=== PATIENT | male | born 1980 | race Caucasian/White ===

== ENCOUNTER 2016-11-08 17:00 | Inpatient (IN) | payer BC, OTHER ==
[~2016-11-08] VITALS: Ht 182.9 cm; Wt 90.7 kg
[2016-11-08] MEDS ORDERED: LORAZEPAM 2 MG/1 ML VIAL IM PRN (18:45)
[2016-11-08] MEDS ORDERED: THIAMINE HCL 200 MG/2 ML VIAL IM ONE (18:45)
[2016-11-08] MEDS ORDERED: LOPERAMIDE HCL 2 MG CAPSULE PO PRN ×2 (18:45)
[2016-11-08] MEDS ORDERED: MIRALAX 17 GM POWD.PACK PO PRN (18:45)
[2016-11-08] MEDS ORDERED: MAGNESIUM HYDROXIDE 30 ML LIQUID UDC PO PRN (18:45)
[2016-11-08] MEDS ORDERED: DICYCLOMINE HCL 20 MG TABLET PO PRN (18:45)
[2016-11-08] MEDS ORDERED: HYDROXYZINE PAMOATE 25 MG CAPSULE PO PRN (18:45)
[2016-11-08] MEDS ORDERED: IBUPROFEN 400 MG TABLET PO PRN (18:45)
[2016-11-08] MEDS ORDERED: ACETAMINOPHEN 325 MG TABLET PO PRN (18:45)
[2016-11-08] MEDS ORDERED: LORAZEPAM 1 MG TABLET PO PRN ×2 (18:45)
[2016-11-08 18:53] LABS: *AMPHETAMINE, URINE NEGATIVE (NEGATIVE); *BARBITURATE, URINE NEGATIVE (NEGATIVE); *CANNABINOID, URINE NEGATIVE (NEGATIVE); *COCCAINE, URINE NEGATIVE (NEGATIVE); *OPIATE, URINE NEGATIVE (NEGATIVE); *PHENCYCLIDINE SCREEN,URINE NEGATIVE (NEGATIVE)
[2016-11-08 19:00] VITALS: BP 142/85
[2016-11-08] MEDS: ONDANSETRON ODT 4 MG TAB.RAPDIS SL PRN (19:13)
--- NOTE | 2016-11-08 19:15 | NUR ---
PRN Zofran administration Pt c/o nausea and is dry heaving. PRN Zofran ODT administered.
--- NOTE | 2016-11-08 19:30 | NUR ---
IV Insertion 22 gauge IV inserted in pt's left hand. IV was flushed and is patent. Site secured with dressing. Pt tolerated the insertion.
--- NOTE | 2016-11-08 20:15 | NUR ---
PRN Zofran reassessment PRN Zofran somewhat effective. Pt has had some relief but continues to have mild nausea.
[2016-11-08 20:41] LABS: BASOPHILS # (AUTO) 0.1 K/uL (0.0-0.2); BASOPHILS % (AUTO) 1.1 % (0.0-2.0); EOSINOPHILS % (AUTO) 0.4 % (0.0-7.0); HEMATOCRIT 45.1 % (40.0-50.0); HEMOGLOBIN 15.2 g/dL (14.0-18.0); LYMPHOCYTES # (AUTO) 1.2 K/uL (0.8-4.8); LYMPHOCYTES % (AUTO) 20.9 % (20.5-51.5); MEAN CORPUSCULAR HEMOGLOBIN 30.3 uug (27.0-31.0); MEAN CORPUSCULAR HGB CONC 34 g/dL (32.0-37.0); MEAN CORPUSCULAR VOLUME 89.7 fL (82.0-92.0); MONOCYTES # (AUTO) 0.6 K/uL (0.1-1.30); NEUTROPHILS % (AUTO) 67.6 % (38.5-71.5); PLATELET COUNT (AUTO) 260 K/uL (150-450); RED BLOOD CELL COUNT(AUTO) 5.02 MIL/uL (4.70-6.10); RED CELL DISTRIBUTION WIDTH 12.9 % (11.5-14.5); WHITE BLOOD COUNT (AUTO) 5.9 K/uL (4.0-11.2)
[2016-11-08 20:55] VITALS: BP 154/103
[2016-11-08] MEDS ORDERED: LORAZEPAM 1 MG TABLET PO ONE (21:00)
[2016-11-08] MEDS ORDERED: PANTOPRAZOLE SODIUM 40 MG VIAL IV ONE (21:00)
--- NOTE | 2016-11-08 21:00 | NUR ---
ADMISSION Pt is a 36 yo male who arrived on the [facility] at 1845 on 11/08/16. Body check performed by T and skin check performed by nurse. He was oriented to the unit and shown to his room. Pt is A&O x4 and ambulatory. He reports NKA, is full code status, and on a regular diet. He does not appear intoxicated and answers questions appropriately. Vital signs are B/P 142/85, HR 104 , RR 18, O2 sat 95%, T 98.3, pain 0/10. He is 6'0" and weighs 200lb. He has a h/o anxiety and denies any other PMH. Lung sounds clear, PERRLA, brisk capillary refill, bowel sounds present, technology education teacher equal and strong. He reports a poor appetite recently due to ETOH use. Last BM 11/06. He has a scrape on the right lower back and a bruise on the left buttock from a fall prior to admission. No s/s of infection. History of Use ETOH/Wine 2,560mL per day for the past 4 months. Last drank 1,280mL at 1200 on 11/08/16. He has drank ETOH for 20 years. Pt reports using cocaine 1x/month for 2 years. Last used 6 months ago. He used edible marijuana 1 week ago and reports that he rarely uses this. This is his first time in treatment. Pt's longest period of sobriety was for 11 days in 02/2016. Pt came to treatment because "I didn't decide, but I was willing". He does not have a primary care physician. CIWA on admission was 9. He has tremors, nausea, flushing, and anxiety. Dr Vasquez aware of pt's admission. Orders received. Fall and seizure precautions in place. Bed is down with call light in reach.
[2016-11-08 21:02] LABS: ALBUMIN 4.7 g/dL (3.4-5.0); BILIRUBIN,TOTAL 0.8 mg/dL (0.2-1.0); MAGNESIUM 2.3 mg/dL (1.8-2.4); POTASSIUM 4.1 mmol/L (3.5-5.1); TOTAL PROTEIN, SERUM 9.2 g/dL (6.4-8.2)
[2016-11-08] MEDS: ONDANSETRON 4 MG/2 ML VIAL IV PRN (21:03)
--- NOTE | 2016-11-08 21:05 | NUR ---
Onetime Ativan, Onetime Protonix, and PRN Zofran Pt c/o nausea with one episode of vomiting and acid reflux. He is flushed with tremors and reports feeling anxious. CIWA score is 9. One time Ativan, Onetime Protonix IV, and PRN Zofran IV administered per orders.
[2016-11-08 21:06] LABS: THYROID STIMULATING HORMONE 1.374 mIU/mL (0.358-3.740)
[2016-11-08 21:08] LABS: HIV-1 p24 ANTIGEN NON REACTIVE (NONREACTIVE); HIV-1/2 ANTIBODY NON REACTIVE (NONREACTIVE)
[2016-11-08] MEDS: IV NS 1000 ML 1,000 ML IV PRN (21:58)
--- NOTE | 2016-11-08 22:20 | NUR ---
One time Ativan, One time Protonix, and PRN Zofran reassessment Protonix and Zofran effective. Pt reports feeling relief of nausea and acid reflux. He is less flushed, is feeling more relaxed and tremors have improved.
[2016-11-08 23:00] VITALS: BP 148/111
[2016-11-08] MEDS: PROMETHAZINE HCL 25 MG/1 ML VIAL IM PRN (23:08)
--- NOTE | 2016-11-08 23:10 | NUR ---
PRN Phenergan administration Pt reports nausea has returned but denies vomiting. PRN Phenergan administered.
[2016-11-08] MEDS: diphenhydrAMINE 50 MG CAPSULE PO PRN (23:18)
[2016-11-08] MEDS: CLONIDINE HCL 0.1 MG TABLET PO PRN (23:19)
--- NOTE | 2016-11-08 23:20 | NUR ---
PRN Clonidine and Benadryl Pt's B/P 148/111 and HR 132. He has tremors and skin is moist. He is lying in bed but is unable to fall sleep. PRN Clonidine and Benadryl administered.
[2016-11-09] VITALS (7 sets, daily range): BP systolic 106–146; BP diastolic 61–105
--- NOTE | 2016-11-09 00:20 | NUR ---
PRN Clonidine and Benadryl reassessment Pt is lying in bed resting with eyes closed. He reports feeling somewhat more relaxed. B/P 126/90 and HR 116.
--- NOTE | 2016-11-09 00:22 | NUR ---
PRN Ativan administration Pt's B/P is 126/90 and HR 116. He reports feeling anxious and unable to relax. Tremors and flushing noted. CIWA score is 8. PRN Ativan administered.
--- NOTE | 2016-11-09 01:30 | NUR ---
PRN Ativan effective Pt is lying comfortably in bed resting with eyes closed. B/P 106/61 and HR 113.
[2016-11-09] MEDS ORDERED: OMEP20TA20 PO (04:33)
[2016-11-09] MEDS: ONDANSETRON 4 MG/2 ML VIAL IV PRN ×2 (05:42→22:07)
--- NOTE | 2016-11-09 05:46 | NUR ---
PRN Zofran IV administration. Pt. woke up and c/o feeling nausea again. PRN Zofran IV administered.
--- NOTE | 2016-11-09 06:12 | NUR ---
PRN Zofran reassessment PRN Zofran effective. Pt reports relief of nausea.
[2016-11-09] MEDS: MAG HYDROX/AL HYDROX/SIMETH 30 ML LIQUID UDC PO PRN ×2 (06:25→22:07)
[2016-11-09] MEDS: IV NS 1000 ML 1,000 ML IV PRN ×2 (06:26→16:03)
--- NOTE | 2016-11-09 06:27 | NUR ---
RN note PRN Maalox Pt c/o heartburn. Administered Maalox 30 ml PO. No SOB noted. Will reassess.
--- NOTE | 2016-11-09 07:10 | NUR ---
END OF SHIFT Report provided to day shift nurse. Pt is lying in bed resting. He is a 36 [facility]45 for ETOH withdrawal. He is A&O x4 and ambulatory. NKA, full code, regular diet. IV inserted to left hand with IV fluids running. Pt is NPO. One time Protonix, One time Ativan, PRN Zofran x2, PRN Phenergan, PRN Clonidine, PRN Ativan, and PRN Benadryl administered. Ativan taper scheduled to start today. Last CIWA was 3. He slept for 6 hours. Fall and seizure precautions in place. Bed is down with call light in reach.
--- NOTE | 2016-11-09 07:20 | NUR ---
RN note reassess Pt verbalized relief from heartburn.
[2016-11-09 07:55] LABS: BILIRUBIN,DIRECT 0.2 mg/dL (0.0-0.2); BILIRUBIN,TOTAL 1.4 mg/dL (0.2-1.0); CALCIUM 8.6 mg/dL (8.5-10.1); MAGNESIUM 2.1 mg/dL (1.8-2.4); PHOSPHOROUS 3.7 mg/dL (2.5-4.9); POTASSIUM 3.7 mmol/L (3.5-5.1); TOTAL PROTEIN, SERUM 7.9 g/dL (6.4-8.2)
--- NOTE | 2016-11-09 08:16 | NUR ---
PRN Pt with ZX=[id number]. Catapres po prn per MD order given and tolerated well.
[2016-11-09] MEDS: LORAZEPAM 1 MG TABLET PO SCH ×4 (08:17→22:06)
[2016-11-09] MEDS: CLONIDINE HCL 0.1 MG TABLET PO PRN (08:17)
[2016-11-09] MEDS: MULTIVITAMINS,THERAPEUTIC TABLET PO SCH (08:17)
--- NOTE | 2016-11-09 08:17 | NUR ---
PRN EVAL Pt states stomach cramps is tolerable.
--- NOTE | 2016-11-09 08:17 | NUR ---
PRN Pt with c/o stomach cramps. Bentyl po prn per MD order given and tolerated well.
[2016-11-09] MEDS: PROMETHAZINE HCL 25 MG/1 ML VIAL IM PRN (08:18)
[2016-11-09] MEDS: THIAMINE HCL 100 MG TABLET PO SCH (08:18)
[2016-11-09] MEDS: PANTOPRAZOLE SODIUM 40 MG VIAL IV SCH (08:18)
[2016-11-09] MEDS: FOLIC ACID 1 MG TABLET PO SCH (08:18)
--- NOTE | 2016-11-09 08:18 | NUR ---
PRN Pt with c/o nausea. Phenargan po prn per MD order given and tolerated well.
--- NOTE | 2016-11-09 08:30 | NUR ---
START OF SHIFT Pt 36 y/o male admitted for etoh withdrawal. Pt received in room with eyes closed resting, but easily arousable to name. Pt alert and oriented to name, place, and time. Bilateral hands with slight tremors noted. It was reported that pt slept for 6 hours last night. Bed on lowest position with side rails x2 up for safety. Call light within reach. No distress noted at this time.
[2016-11-09] MEDS ORDERED: TUBERCULIN,PURIF.PROT.DERIV. 5 TU/0.1 ML TEST ID ONE (09:00)
--- NOTE | 2016-11-09 09:16 | NUR ---
PRN HM=[id number].
--- NOTE | 2016-11-09 09:18 | NUR ---
PRN EVAL Pt denies any nausea at this time.
--- NOTE | 2016-11-09 18:30 | NUR ---
END OF SHIFT Pt 36 y/o male admitted for etoh withdrawal.Pt alert and oriented to name, place, and time. Perrla. Repirations even and unlabored. Skin Bilateral hands with slight tremors noted. Peripheral IV on left hand intact and in place with no infiltration or redness noted. Pt observed mostly in room today. Medication compliant and tolerated well. No ASE noted. Bed on lowest position with side rails x2 up for safety. Call light within reach. No distress noted at this time.
--- NOTE | 2016-11-09 19:15 | NUR ---
START OF SHIFT Received 36 year old male patient admitted on 11/08/16 for ETOH and Cocaine dependency. Pt is full code with NKA. He reports a PMHx of anxiety. He reports using ETOH (wine) 2.5, 60 mL daily for 4 months. Last drank 1250 mL on 11/08/16. Cocaine 1x/month for 2 years. Last used 6 months ago. Pt placed on 5 day Ativan taper started today 11/09/16 and tolerating well. Per endorsement, pt with 22 gauge heplock on left hand. Patent and flushing well, no s/s of infection noted. IV fluids DC'd. Pt is alert and oriented x4, breathing is even and unlabored. Pt safe with bed locked in lowest position, side rails up x2 and call light within reach. Will continue to monitor.
[2016-11-09] MEDS: diphenhydrAMINE 50 MG CAPSULE PO PRN (22:06)
--- NOTE | 2016-11-09 22:07 | NUR ---
PRN MAALOX,BENADRYL, ZOFRAN Pt complains of heartburn, nausea and inability to fall asleep. PRN Maalox, Zofran Inj, and Benadryl administered as ordered. Breathing even and unlabored, safety measures in place. Will continue to monitor effectiveness of medications.
--- NOTE | 2016-11-09 23:07 | NUR ---
PRN MAALOX, BENADRYL, ZOFRAN REASSESSMENT PRN medications effective. Pt lying in bed with eyes closed noted to be asleep. Breathing even and unlabored, respirations 16, safety measures in place. Will continue to monitor.
[2016-11-10] VITALS (7 sets, daily range): BP systolic 139–160; BP diastolic 94–109
--- NOTE | 2016-11-10 04:00 | NUR ---
VITALS 0400 vitals refused by pt. Breathing even and unlabored, safety measures in place. Will continue to monitor. Addendum: 11/10/16 at 0512 by CONSUELO NGUYEN RN Amended: Links added.
--- NOTE | 2016-11-10 07:15 | NUR ---
END OF SHIFT Pt is a 36 year old male patient admitted on 11/08/16 for ETOH and Cocaine dependency. Pt is full code with NKA. He reports a PMHx of anxiety. Pt placed on 5 day Ativan taper started on 11/09/16 and tolerating well. Pt with 22 gauge heplock on left hand. Patent and flushing well, no s/s of infection noted. He received PRN medications of Zofran Inj, Benadryl and Maalox. PRN medications were effective. He slept a total of 5 hrs, Intake: 500 mL, Void: x2, BM:0 CIWA:5. Pt remains alert and oriented x4, breathing is even and unlabored. Pt safe with bed locked in lowest position, side rails up x2 and call light within reach. Endorsed to oncoming nurse.
--- NOTE | 2016-11-10 08:00 | NUR ---
START OF SHIFT Pt 36 y/o male admitted for etoh withdrawal. Pt received in room with eyes closed resting, but easily arousable to name. Pt alert and oriented to name, place, and time. Perrla. Respirations even and unlabored. Bilateral hands with slight tremors noted. Pt with peripheral IV 22g on left hand in place, intact, and patent, with no redness , and is not hot to touch, saline locked. It was reported that pt slept for 5 hours last night. Bed on lowest position with side rails x2 up for safety. Call light within reach. No distress noted at this time.
[2016-11-10 08:08] LABS: ALBUMIN 3.4 g/dL (3.4-5.0); BILIRUBIN,DIRECT 0.2 mg/dL (0.0-0.2); BILIRUBIN,TOTAL 1.8 mg/dL (0.2-1.0); CALCIUM 8.6 mg/dL (8.5-10.1); CREATININE 0.9 mg/dL (0.6-1.3); MAGNESIUM 2.2 mg/dL (1.8-2.4); POTASSIUM 3.9 mmol/L (3.5-5.1); TOTAL PROTEIN, SERUM 7.1 g/dL (6.4-8.2)
[2016-11-10] MEDS: MAG HYDROX/AL HYDROX/SIMETH 30 ML LIQUID UDC PO PRN ×3 (08:19→21:55)
--- NOTE | 2016-11-10 08:19 | NUR ---
PRN Pt with c/o heartburn. Mylanta po prn per MD order given and tolerated well.
[2016-11-10] MEDS: MULTIVITAMINS,THERAPEUTIC TABLET PO SCH (08:20)
[2016-11-10] MEDS: PANTOPRAZOLE SODIUM 40 MG VIAL IV SCH (08:20)
[2016-11-10] MEDS: LORAZEPAM 1 MG TABLET PO SCH ×3 (08:20→21:39)
[2016-11-10] MEDS: CLONIDINE HCL 0.1 MG TABLET PO PRN ×2 (08:20→14:26)
[2016-11-10] MEDS: FOLIC ACID 1 MG TABLET PO SCH (08:20)
[2016-11-10] MEDS: THIAMINE HCL 100 MG TABLET PO SCH (08:20)
--- NOTE | 2016-11-10 08:20 | NUR ---
PRN RF=[id number]/ [id number]. Catapres po prn per MD order given and tolerated well.
[2016-11-10] MEDS: ONDANSETRON 4 MG/2 ML VIAL IV PRN (08:21)
--- NOTE | 2016-11-10 08:21 | NUR ---
PRN Pt with c/o nausea. Zofran po prn per MD order given and tolerated well.
[2016-11-10 13:25] LABS: HCV AB 0.1 s/co ratio (0.0-0.9); HEPATITIS B CORE AB, IgM Negative (Negative); HEPATITIS B SURFACE AG Negative (Negative)
[2016-11-10] MEDS: CALCIUM CARBONATE 500 MG TAB.CHEW PO PRN (14:26)
--- NOTE | 2016-11-10 14:26 | NUR ---
PRN PW=[id number]. Catapres po prn per MD order given and tolerated well.
[2016-11-10] MEDS: ONDANSETRON ODT 4 MG TAB.RAPDIS SL PRN ×2 (14:33→21:56)
--- NOTE | 2016-11-10 14:33 | NUR ---
PRN Pt with c/o nausea, stomach upset, heart burn. Tums po prn per MD order and zofran po prn per MD order given and tolerated well.
--- NOTE | 2016-11-10 14:50 | NUR ---
IV DC Pt requested to have IV dc'd. IV dc'd and pt tolerated well.
--- NOTE | 2016-11-10 15:26 | NUR ---
PRN EVAL YW=[id number] p=[id number].
--- NOTE | 2016-11-10 15:33 | NUR ---
PRN EVAL Pt observed in room on bed. No distress noted at this time.
[2016-11-10] MEDS ORDERED: CALCIUM CARBONATE 500 MG TAB.CHEW PO ONE (17:30)
--- NOTE | 2016-11-10 19:24 | NUR ---
END OF SHIFT Pt 36 y/o male admitted for etoh withdrawal.Pt alert and oriented to name, place, and time. Perrla. Repirations even and unlabored. Skin warm and slightly moist to touch. Bilateral hands with slight tremors noted. Peripheral IV was dc'd and tolerated well. Pt observed mostly in room today but did come out to the dining room a few times today. Medication compliant and tolerated well. No ASE noted. Bed on lowest position with side rails x2 up for safety. Call light within reach. No distress noted at this time.
--- NOTE | 2016-11-10 19:50 | NUR ---
START OF SHIFT NOTE Received report from day shift nurse. Pt is 36 y o male, admitted on 11/08/16 for ETOH (2560 ml of wine daily for 4 months) dependence. Pt also reported cocaine use once a month. Pt is on 5 day Ativan taper started 11/09/16. Pt aaox4, reports mild anxiety, "some" headache 2/10, stomach cramps, and minimal nausea without emesis. No tremors noted, pt denies tingling/ burning. Lung sounds clear, heart rate regular. Bowel sounds active x 4. Pt denies urinary difficulties. PMH of anxiety. 322 Pt full code, regular diet, NKA. Pt on fall and seizure precautions. Side rails up x 2, bed locked in lowest position, garett light within reach. Will continue with plan of care.
[2016-11-10] MEDS: CLONIDINE HCL 0.1 MG TABLET PO SCH (21:40)
--- NOTE | 2016-11-10 21:56 | NUR ---
PRN ZOFRAN AND MYLANTA Pt c/o nausea and heartburn. Given ZOfran ODT prn and Mylanta 30 ml prn PO; will continue to monitor
--- NOTE | 2016-11-10 22:30 | NUR ---
REASSESSMENT Pt states nausea and heartburn subsided. Pt states he's ready to sleep. Fall and seizure precautions in place.
--- NOTE | 2016-11-11 | NUR ---
VS, CIWA Pt refused VS and CIWA assessment, state he wants to sleep and not to be bothered. Pt asleep, RR even and unlabored at 15breaths per minute. Side rails up x 2, call light within reach, bed locked in lowest position. Will continue To monitor Addendum: 11/11/16 at 0517 by RUY FRANCO RN Amended: Links added.
--- NOTE | 2016-11-11 03:55 | NUR ---
PRN ZOFRAN AND MYLANTA Pt c/o nausea and heartburn. Given ZOfran ODT prn and Mylanta 30 ml prn PO; will continue to monitor
[2016-11-11] MEDS: MAG HYDROX/AL HYDROX/SIMETH 30 ML LIQUID UDC PO PRN ×3 (03:56→21:05)
[2016-11-11] MEDS: ONDANSETRON ODT 4 MG TAB.RAPDIS SL PRN ×2 (03:56→12:58)
[2016-11-11 04:00] VITALS: BP 139/98
--- NOTE | 2016-11-11 04:45 | NUR ---
REASSESSMENT Pt in bed with eyes closed; appears asleep. RR unlabored. Will continue to monitor
--- NOTE | 2016-11-11 07:43 | NUR ---
END OF SHIFT NOTE Pt is 36 y o male, admitted on 11/08/16 for ETOH (2560 ml of wine daily for 4 months) dependence. Pt also reported cocaine use once a month. Pt is on day 3 of 5 day Ativan taper started 11/09/16. Pt withdrawal s/s included nausea, heartburn, anxiety, sweats. Last CIWA 3 at 0400. VSS. Pt received all scheduled medications. Pt received prn Mylanta and Zofran two times: at 2200 and 0400, both times, pt verbalized relief. Pt slept fro 7 hrs. Pt has PMH of anxiety. Pt full code, regular diet, NKA. Pt on fall and seizure precautions. Report endorsed to day shift nurse
[2016-11-11 08:00] VITALS: BP 132/100
--- NOTE | 2016-11-11 08:00 | NUR ---
START OF SHIFT Pt 36 y/o male admitted for etoh withdrawal. Pt received in room with eyes closed resting, but easily arousable to name. Pt alert and oriented to name, place, and time. Perrla. Respirations even and unlabored. No hand tremors noted. It was reported that pt slept for 7 hours last night. Bed on lowest position with side rails x2 up for safety. Call light within reach. No distress noted at this time.
[2016-11-11] MEDS: FOLIC ACID 1 MG TABLET PO SCH (08:11)
[2016-11-11] MEDS: LORAZEPAM 1 MG TABLET PO SCH ×4 (08:11→21:02)
[2016-11-11] MEDS: MULTIVITAMINS,THERAPEUTIC TABLET PO SCH (08:11)
[2016-11-11] MEDS: THIAMINE HCL 100 MG TABLET PO SCH (08:11)
[2016-11-11] MEDS: PANTOPRAZOLE SODIUM 40 MG TABLET.DR PO SCH (08:11)
[2016-11-11] MEDS: CLONIDINE HCL 0.1 MG TABLET PO SCH ×2 (08:12→21:02)
--- NOTE | 2016-11-11 11:14 | NUR ---
PRN Pt stated has heartburn. Mylanta po prn per MD order given and tolerated well.
[2016-11-11 12:00] VITALS: BP 144/104
[2016-11-11] MEDS: CLONIDINE HCL 0.1 MG TABLET PO PRN (12:58)
--- NOTE | 2016-11-11 13:00 | NUR ---
PRN LB=[id number]. Catapres po prn per MD order given and tolerated well.
--- NOTE | 2016-11-11 13:00 | NUR ---
PRN Pt with c/o nausea, but no vomit episode. Zofran po prn per MD order given and tolerated well.
[2016-11-11] MEDS ORDERED: CLONIDINE HCL 0.1 MG TABLET PO ONE (17:30)
--- NOTE | 2016-11-11 17:55 | NUR ---
PT ENDORSED Pt endorsed, will resume care.
[2016-11-11 18:04] VITALS: BP 150/106
--- NOTE | 2016-11-11 19:17 | NUR ---
END OF SHIFT Endorsed pt to locksmith helper nurse. 36 year old male patient admitted for ETOH withdrawals. Pt is A/O x4. Pt is tolerating ordered medications well. Pt presents with HTN and Clonidine PRN was administered x2 per MD orders/ PRN Malox, and PRN Zofran administered and ordered. Pt reports adequate caloric and fluid intake. BMx2. Pt remains safe, calm, compliant and cooperative with care. All needs met at this time. engineering psychologist nurse to continue monitoring.
--- NOTE | 2016-11-11 19:43 | NUR ---
START OF SHIFT NOTE Received report from day shift nurse. Pt is 36 y o male, admitted on 11/08/16 for ETOH (2560 ml of wine daily for 4 months) dependence. Pt also reported cocaine use once a month. Pt is on day 3 of 5 day Ativan taper started 11/09/16. Pt has PMH of anxiety. Pt full code, regular diet, NKA. Pt aaox4, reports mild anxiety throughout the day and minimal nausea on/off without emesis. Pt states medications were effective in managing withdrawal s/s today. No tremors noted, pt denies tingling/ burning. Lung sounds clear, heart rate regular. Bowel sounds active x 4. Pt denies urinary difficulties. Pt educated on deep breathing for relaxation, verbalized understanding. Pt on fall and seizure precautions. Side rails up x 2, bed locked in lowest position, garett light within reach. Will continue with plan of care.
[2016-11-11 20:00] VITALS: BP 138/106
--- NOTE | 2016-11-11 21:04 | NUR ---
PRN MEDICATIONS: MYLANTA Pt c/o heartburn. Mylanta 30 ml prn administered as ordered. Pt educated about avoiding foods exacerbating heartburn.
[2016-11-11] MEDS: diphenhydrAMINE 50 MG CAPSULE PO PRN (22:17)
--- NOTE | 2016-11-11 22:17 | NUR ---
PRN MEDICATION: BENADRYL; REASSESSMENT OF MYLANTA Pt c/o insomnia. Administered Benadryl 50 mg prn PO as ordered. Pt states heartburn subsided. Fall and seizure precautions in place, will continue to monitor
--- NOTE | 2016-11-11 23:00 | NUR ---
REASSESSMENT OF BENADRYL Pt in bed with eyes closed. RR even and unlabored. Will continue to monitor
--- NOTE | 2016-11-12 | NUR ---
VS, & CIWA Pt refused VS and CIWA assessment, stated he wants to sleep and not to be bothered. Pt asleep, RR even and unlabored at 18 breaths per minute. Side rails up x 2, call light within reach, bed locked in lowest position. Will continue to monitor Addendum: 11/12/16 at 0323 by RUY FRANCO RN Amended: Links added.
--- NOTE | 2016-11-12 00:55 | NUR ---
PRN MAALOX REASSESSMENT PRN medication effective. Pt lying in bed with eyes closed noted to be asleep. Respirations 16, breathing is even and unlabored. Safety measures in place. Will continue to monitor. Addendum: 11/13/16 at 0253 by CONSUELO NGUYEN RN ERROR IN CHARTING. WRONG DATE.
[2016-11-12] MEDS: ONDANSETRON ODT 4 MG TAB.RAPDIS SL PRN ×2 (02:21→09:19)
--- NOTE | 2016-11-12 02:22 | NUR ---
PRN MEDICATION: ZOFRAN Pt woke up, c/o nausea. Administered Zofran ODT 4 mg prn as ordered.
--- NOTE | 2016-11-12 03:22 | NUR ---
REASSESSMENT Pt in bed, eyes closed. Did not disturb. Will continue to monitor
[2016-11-12] MEDS: CLONIDINE HCL 0.1 MG TABLET PO PRN (04:52)
[2016-11-12 04:55] VITALS: BP 145/106
--- NOTE | 2016-11-12 04:55 | NUR ---
PRN MEDICATION: CLONIDINE Pt awake. VS: BP 145/106, HR 85, RR 16, SpO2 98. Pt c/o anxiety and mild headache. CIWA = 3. Administered Clonidine 0.1 mg PO prn. Fall and seizure precautions in place. Will continue to monitor
[2016-11-12 05:30] VITALS: BP 138/100
--- NOTE | 2016-11-12 05:30 | NUR ---
REASSESSMENT Pt in be, states anxiety decreased; BP 138/100, HR 85, RR 16, SpO2 98%. Pt states headache subsided. All needs met.
[2016-11-12] MEDS: PANTOPRAZOLE SODIUM 40 MG TABLET.DR PO SCH (06:11)
--- NOTE | 2016-11-12 07:25 | NUR ---
END OF SHIFT NOTE Pt is 36 y o male, admitted on 11/08/16 for ETOH (2560 ml of wine daily for 4 months) dependence. Pt is on day 4 of 5 day Ativan taper started 11/09/16. Pt withdrawal s/s included intermittent nausea, heartburn, anxiety. Skin intact. Last CIWA 3 at 0400. VSS. Pt received all scheduled medications. Pt received prn medications as was documented in separate entries. Pt slept for 4 hrs. Pt has PMH of anxiety. Pt full code, regular diet, NKA. Pt on fall and seizure precautions. Report endorsed to day shift nurse.
[2016-11-12 08:00] VITALS: BP 142/105
--- NOTE | 2016-11-12 08:00 | NUR ---
START OF SHIFT NOTE Received report from night nurse,36 year old male, admitted for ETOH dependence. Full code, regular diet, NKA. Pt reported drinking of 2560 ml of wine daily for 4 months, cocaine use once a month. Pt is on 5 day Ativan taper. Pt has PMH of anxiety. Pt received PRN's medications at night noted effective. Pt slept for 4 hours. Last CIWA 3. Upon assessment pt is alert awake oriented x4 in stable condition. No tremors noted, pt denies tingling/ burning. Lung sounds clear, heart rate regular. Bowel sounds active x 4. Pt denies urinary difficulties. Pt educated on deep breathing for relaxation, verbalized understanding. Safety measures in place, call light within reach. Will cont to monitor.
[2016-11-12 08:10] LABS: ALBUMIN 3.7 g/dL (3.4-5.0); BILIRUBIN,DIRECT 0.1 mg/dL (0.0-0.2); BILIRUBIN,TOTAL 0.8 mg/dL (0.2-1.0); CALCIUM 8.8 mg/dL (8.5-10.1); MAGNESIUM 2.5 mg/dL (1.8-2.4); POTASSIUM 4.1 mmol/L (3.5-5.1); TOTAL PROTEIN, SERUM 7.6 g/dL (6.4-8.2)
[2016-11-12] MEDS: LORAZEPAM 1 MG TABLET PO SCH ×3 (09:15→20:43)
[2016-11-12] MEDS: MULTIVITAMINS,THERAPEUTIC TABLET PO SCH (09:15)
[2016-11-12] MEDS: THIAMINE HCL 100 MG TABLET PO SCH (09:15)
[2016-11-12] MEDS: FOLIC ACID 1 MG TABLET PO SCH (09:15)
[2016-11-12] MEDS: CLONIDINE HCL 0.1 MG TABLET PO SCH ×3 (09:16→20:44)
--- NOTE | 2016-11-12 09:19 | NUR ---
PRN MEDICATION Pt c/o of nausea. Administered PRN Zofran 4 mg SL as ordered. Will cont to monitor.
--- NOTE | 2016-11-12 10:19 | NUR ---
REASSESSMENT upon reassessment pt reported medication effective nausea subside.
[2016-11-12] MEDS: AMLODIPINE 5 MG TABLET PO SCH (10:21)
[2016-11-12 12:00] VITALS: BP 134/86
[2016-11-12 16:00] VITALS: BP 145/99
--- NOTE | 2016-11-12 19:07 | NUR ---
END OF SHIFT NOTE Gave report to night nurse, 36 year old male, admitted for ETOH dependence. Full code, regular diet, NKA. Pt reported drinking of 2560 ml of wine daily for 4 months, cocaine use once a month. Pt cont with 5 day Ativan taper. Pt has PMH of anxiety. Pt received PRN Zofran for nausea noted to be effective. Pt attended groups and activities. Pt also started on Norvasc 5mg for high blood pressure, administered medication as ordered and effective. Last CIWA-4. Pt's total intake 2960ml, voided x5, with no BM. vital signs remained stable. Safety measures in place, call light within reach. Pt endorsed to night nurse in stable condition.
--- NOTE | 2016-11-12 19:15 | NUR ---
START OF SHIFT Received 36 year old male patient admitted on 11/08/16 for ETOH and cocaine dependency. Pt is full code with NKA. He reports a PMHx of anxiety. He reports drinking EOTH (wine) 2,560 mL daily for 4 months. Last drink was 1,250 mL on 11/08/16. Pt placed on 5 day Ativan taper started on 11/09/16 and tolerating well. Per endorsement, pt received PRN Zofran. Pt is alert and oriented x4. Breathing is even and unlabored. Pt safe with bed locked in lowest position, side rails up x2 and call light within reach. Will continue to monitor.
[2016-11-12 20:00] VITALS: BP 150/99
[2016-11-12] MEDS: CALCIUM CARBONATE 500 MG TAB.CHEW PO PRN (20:44)
--- NOTE | 2016-11-12 20:44 | NUR ---
PRN TUMS Pt complains of heartburn. PRN Tums administered as ordered. Breathing even and unlabored, safety measures in place. Will monitor effectiveness.
--- NOTE | 2016-11-12 21:44 | NUR ---
PRN TUMS REASSESSMENT PRN medication effective. Pt reports relief from heartburn. Breathing even and unlabored, safety measures in place. Will continue to monitor.
[2016-11-12] MEDS: MAG HYDROX/AL HYDROX/SIMETH 30 ML LIQUID UDC PO PRN (23:35)
--- NOTE | 2016-11-12 23:55 | NUR ---
PRN MAALOX Pt complains of heartburn. PRN Maalox administered as ordered. Breathing even and unlabored, safety measures in place. Will continue to monitor effectiveness.
[2016-11-13] VITALS: BP 141/93
--- NOTE | 2016-11-13 00:55 | NUR ---
PRN MAALOX REASSESSMENT PRN medication effective. Pt lying in bed with eyes closed noted to be asleep. Respirations 16, breathing is even and unlabored. Safety measures in place. Will continue to monitor.
[2016-11-13] MEDS: ONDANSETRON ODT 4 MG TAB.RAPDIS SL PRN (02:42)
[2016-11-13] MEDS: CLONIDINE HCL 0.1 MG TABLET PO PRN (02:42)
--- NOTE | 2016-11-13 02:42 | NUR ---
PRN ZOFRAN/CLONIDINE Pt complains of nausea with no episode of vomiting and anxiety related to w/d symptoms. PRN Zofran and Clonidine administered as ordered. Breathing even and unlabored, safety measures in place. Will continue to monitor effectiveness.
--- NOTE | 2016-11-13 03:42 | NUR ---
PRN ZOFRAN/CLONIDINE REASSESSMENT PRN medications effective. Pt lying in bed with eyes closed noted to be asleep. Respirations 16, breathing is even and unlabored. Pt safe with bed locked in lowest position, side rails up x2 and call light within reach. Will continue to monitor.
--- NOTE | 2016-11-13 04:00 | NUR ---
VITALS 0400 vitals refused. Breathing even and unlabored,respirations 16, safety measures in place. Will continue to monitor. Addendum: 11/13/16 at 0545 by CONSUELO NGUYEN RN Amended: Links added.
[2016-11-13] MEDS: PANTOPRAZOLE SODIUM 40 MG TABLET.DR PO SCH (06:13)
[2016-11-13] MEDS: PROMETHAZINE HCL 25 MG/1 ML VIAL IM PRN (06:13)
--- NOTE | 2016-11-13 06:13 | NUR ---
PRN PHENERGAN Pt complains of nausea with no episode of vomiting. PRN Phenergan administered as ordered. Breathing even and unlabored, safety measures in place. Will continue to monitor effectiveness of medication.
--- NOTE | 2016-11-13 07:00 | NUR ---
PRN PHENERGAN REASSESSMENT PRN medication effective. Pt lying in bed with eyes closed resting. Breathing even and unlabored. Pt safe with bed locked in lowest position, side rails up x2 and call light within reach.
--- NOTE | 2016-11-13 07:15 | NUR ---
END OF SHIFT Pt is a 36 year old male patient admitted on 11/08/16 for ETOH and cocaine dependency. Pt is full code with NKA. He reports a PMHx of anxiety. Pt placed on 5 day Ativan taper started on 11/09/16 and tolerating well. Pt received PRN Zofran, Maalox, clonidine and phenergan. PRN medications effective. He slept a total of 3 hrs, Intake: 2762mL, Void: x4, BM: x1, CIWA: 5. Pt remains alert and oriented x4. Breathing is even and unlabored. Pt safe with bed locked in lowest position, side rails up x2 and call light within reach. Endorsed to oncoming nurse.
[2016-11-13 08:00] VITALS: BP 119/86
--- NOTE | 2016-11-13 08:00 | NUR ---
START OF SHIFT NOTE Received report from night nurse,36 year old male, admitted for ETOH dependence. Full code, regular diet, NKA. Pt reported drinking of 2560 ml of wine daily for 4 months, cocaine use once a month. Pt is on 5 day Ativan taper tolerating well. Pt has PMH of anxiety. Pt received PRN Zofran, Maalox, clonidine and Phenergan. PRN medications effective per night nurse, pt slept for 3 hrs. Last CIWA 5. Upon assessment pt is alert awake oriented x4 in stable condition. No tremors noted, pt denies tingling/ burning. Lung sounds clear, heart rate regular. Bowel sounds active x 4. Pt educated on deep breathing for relaxation, with good verbal understanding. Safety measures in place, call light within reach. Will cont to monitor.
[2016-11-13] MEDS: LORAZEPAM 1 MG TABLET PO SCH ×2 (08:26→21:00)
[2016-11-13] MEDS: THIAMINE HCL 100 MG TABLET PO SCH (08:26)
[2016-11-13] MEDS: MULTIVITAMINS,THERAPEUTIC TABLET PO SCH (08:26)
[2016-11-13] MEDS: FOLIC ACID 1 MG TABLET PO SCH (08:26)
[2016-11-13] MEDS: CLONIDINE HCL 0.1 MG TABLET PO SCH ×3 (08:26→20:49)
[2016-11-13] MEDS: AMLODIPINE 5 MG TABLET PO SCH (08:27)
[2016-11-13 12:00] VITALS: BP 130/75
[2016-11-13 16:00] VITALS: BP 124/72
--- NOTE | 2016-11-13 19:15 | NUR ---
START OF SHIFT Received 36 year old male patient admitted on 11/08/16 for ETOH and cocaine dependency. Pt is full code with NKA. He reports a PMHx of anxiety. He reports drinking EOTH (wine) 2,560 mL daily for 4 months. Last drink was 1,250 mL on 11/08/16. Pt placed on 5 day Ativan taper started on 11/09/16 and tolerating well. Per endorsement, pt did not receive or request PRN medications. Pt is alert and oriented x4. Breathing is even and unlabored. Pt safe with bed locked in lowest position, side rails up x2 and call light within reach. Will continue to monitor.
--- NOTE | 2016-11-13 19:19 | NUR ---
END OF SHIFT NOTE Gave report to night nurse, 36 year old male, admitted for ETOH dependence. Full code, regular diet, NKA. Pt reported drinking of 2560 ml of wine daily for 4 months, cocaine use once a month. Pt cont with 5 day Ativan taper. Pt has PMH of anxiety. No PRN Medications were administered. Pt participated in groups and activities. Educated Pt on deep breathing Last CIWA-0. Pt's total intake 2797ml, voided x5, with x1 BM. vital signs remained stable. Safety measures in place, call light within reach. Pt endorsed to night nurse in stable condition.
[2016-11-13 20:00] VITALS: BP 135/97
--- NOTE | 2016-11-13 21:00 | NUR ---
MEDICATION REFUSAL Pt refused 2100 dose of Ativan 1 mg. Pt states " I don't want the taper med tonight, I'm doing fine." Risks and benefits explained x3. Pt still refused. Breathing even and unlabored, safety measures in place. Will continue to monitor. Addendum: 11/14/16 at 0728 by SHARI SCHULTZ RN Dr. Vasquez made aware. Latest CIWA=1.
[2016-11-14] VITALS (8 sets, daily range): BP systolic 120–144; BP diastolic 85–102
--- NOTE | 2016-11-14 | NUR ---
VITALS 0000 vitals refused by pt at beginning of shift. Pt lying in bed with eyes closed noted to be asleep. Respirations 16, breathing is even and unlabored, safety measures in place. Will continue to monitor. Addendum: 11/14/16 at 0342 by CONSUELO NGUYEN RN Amended: Links added.
[2016-11-14] MEDS: MAG HYDROX/AL HYDROX/SIMETH 30 ML LIQUID UDC PO PRN (00:42)
--- NOTE | 2016-11-14 00:42 | NUR ---
PRN MAALOX Pt complains of heartburn. PRN Maalox administered as ordered. Breathing even and unlabored, safety measures in place. Will continue to monitor effectiveness.
--- NOTE | 2016-11-14 01:42 | NUR ---
PRN MAALOX REASSESSMENT PRN medication effective. Pt lying in bed with eyes closed noted to be asleep. Respirations 16, breathing is even and unlabored, safety measures in place. Will continue to monitor.
[2016-11-14] MEDS: CLONIDINE HCL 0.1 MG TABLET PO PRN ×2 (04:14→17:40)
--- NOTE | 2016-11-14 04:14 | NUR ---
PRN CLONIDINE Pt reports anxiety, CIWA:1. Pt also noted with increased BP: 133/101. HR: 89. PRN Clonidine administered as ordered. Breathing even and unlabored, safety measures in place. Will continue to monitor effectiveness.
--- NOTE | 2016-11-14 05:14 | NUR ---
PRN CLONIDINE REASSESSMENT PRN medication effective. Pt reports decreased anxiety and BP. 126/94 HR: 84, SpO2: 100%. Breathing even and unlabored, safety measures in place. Will continue to monitor.
[2016-11-14] MEDS: PANTOPRAZOLE SODIUM 40 MG TABLET.DR PO SCH (06:43)
--- NOTE | 2016-11-14 07:14 | NUR ---
END OF SHIFT Pt is a 36 year old male patient admitted on 11/08/16 for ETOH and cocaine dependency. Pt is full code with NKA. He reports a PMHx of anxiety. Pt placed on 5 day Ativan taper started on 11/09/16 and tolerating well. Pt received PRN medications of Maalox and clonidine. He refused 2100 taper dose of Ativan 1 mg. Risks/benefits were explained x3, pt still refused. He slept a total of 6 hrs, intake: 1000mL, Void: x1, BM:0. CIWA:1. Pt remains alert and oriented x4. Breathing is even and unlabored. Pt safe with bed locked in lowest position, side rails up x2 and call light within reach. Endorsed to oncoming shift.
--- NOTE | 2016-11-14 07:57 | NUR ---
START OF SHIFT NOTE Received report from night nurse,36 year old male, admitted for ETOH dependence. Full code, regular diet, NKA. Pt reported drinking of 2560 ml of wine daily for 4 months, cocaine use once a month. Pt is on 5 day Ativan taper tolerating well. Pt has PMH of anxiety. Pt received PRN Maalox ,Clonidine and PRN medications effective per night nurse, pt slept for 6 hrs. Pt refused his scheduled Ativan per night nurse. Last CIWA 1. Upon assessment pt is alert awake oriented x4 in stable condition. No tremors noted, pt denies tingling/ burning. Lung sounds clear, heart rate regular. Bowel sounds active x 4. Pt educated on deep breathing for relaxation, with good verbal understanding. Safety measures in place, call light within reach. Will cont to monitor.
[2016-11-14] MEDS: THIAMINE HCL 100 MG TABLET PO SCH (08:15)
[2016-11-14] MEDS: FOLIC ACID 1 MG TABLET PO SCH (08:15)
[2016-11-14] MEDS: MULTIVITAMINS,THERAPEUTIC TABLET PO SCH (08:15)
[2016-11-14] MEDS: CLONIDINE HCL 0.1 MG TABLET PO SCH ×3 (08:16→20:21)
[2016-11-14] MEDS: AMLODIPINE 5 MG TABLET PO SCH (08:16)
[2016-11-14] MEDS: HYDROXYZINE PAMOATE 25 MG CAPSULE PO PRN ×2 (11:27→20:21)
[2016-11-14] MEDS: ONDANSETRON ODT 4 MG TAB.RAPDIS SL PRN ×2 (11:28→17:39)
--- NOTE | 2016-11-14 11:28 | NUR ---
PRN ZOFRAN/VISTARIL Pt complains nausea, anxiety PRN Zofran/Vistaril administered as ordered. Breathing even and unlabored, Safety measures in place. Will continue to monitor effectiveness of medications.
--- NOTE | 2016-11-14 12:28 | NUR ---
REASSESSMENT Pt reported medications effective, anxiety and nausea subside,
--- NOTE | 2016-11-14 16:00 | NUR ---
PRN administration Pt is c/o nausea. Administered phenegran IM to LD. Will continue to monitor pt.
[2016-11-14] MEDS: PROMETHAZINE HCL 25 MG/1 ML VIAL IM PRN ×2 (16:03→20:21)
--- NOTE | 2016-11-14 16:30 | NUR ---
Reassessment Pt states that the medication was effective in relieving his nausea.
--- NOTE | 2016-11-14 17:04 | NUR ---
CARE ENDORSED All pertinent information given and care endorsed to nurse in charge.
[2016-11-14 17:13] LABS: *AMPHETAMINE, URINE NEGATIVE (NEGATIVE); *BARBITURATE, URINE NEGATIVE (NEGATIVE); *CANNABINOID, URINE NEGATIVE (NEGATIVE); *COCCAINE, URINE NEGATIVE (NEGATIVE); *OPIATE, URINE NEGATIVE (NEGATIVE); *PHENCYCLIDINE SCREEN,URINE NEGATIVE (NEGATIVE)
--- NOTE | 2016-11-14 17:15 | NUR ---
START OF SHIFT Received report from day shift nurse. Pt is participating in activities. He is a 36 yo male admitted to [facility] on 11/08 for ETOH withdrawal. He is A&O x4 and ambulatory. NKA, full code status, and on a regular diet. He has a PMH of anxiety. On admission he admitted to drinking wine 2,560mL per day for 4 months and cocaine 1x/month for 2 years. Last used cocaine 6 months ago. He completed a 5 day Ativan taper and is scheduled to discharge tomorrow. He reports feeling some anxiety and nausea. Provided support and reassurance. Fall and seizure precautions in place. Bed is down with call light in reach.
--- NOTE | 2016-11-14 17:40 | NUR ---
PRN Clonidine and Zofran administration Pt reports anxiety and nausea. He is flushed. B/P is 138/102 and HR 99. PRN Clonidine and Zofran administered. Addendum: 11/15/16 at 0323 by MISHA KAYE RN PRPili Vistaril also administered
--- NOTE | 2016-11-14 18:40 | NUR ---
PRN Clonidine, Zofran, and Vistaril reassessment PRN Clonidine, Zofran, and Vistaril effective. Pt reports feeling relief of nausea and anxiety.
[2016-11-14] MEDS: CALCIUM CARBONATE 500 MG TAB.CHEW PO PRN (20:26)
--- NOTE | 2016-11-14 20:27 | NUR ---
PRN Phenergan and TUMS administration Pt. reports nausea has returned and he has acid indigestion. PRN Phenergan and TUMS administration.
--- NOTE | 2016-11-14 21:27 | NUR ---
PRN Phenergan and TUMS reassessment PRN Phenergan and TUMS effective. Pt reports relief of nausea and acid indigestion.
[2016-11-14] MEDS: diphenhydrAMINE 50 MG CAPSULE PO PRN (22:01)
--- NOTE | 2016-11-14 22:02 | NUR ---
PRN Benadryl administration Pt c/o inability to sleep. PRN Benadryl administered.
[2016-11-14] MEDS ORDERED: AMLO5TAB2 PO (22:25)
[2016-11-14] MEDS ORDERED: HYDR-3895 PO (22:25)
[2016-11-14] MEDS ORDERED: DIPH50CA37 PO (22:25)
[2016-11-14] MEDS ORDERED: CLON0.1T14 PO (22:25)
--- NOTE | 2016-11-14 23:00 | NUR ---
PRN Benadryl reassessment PRN Benadryl effective. Pt is lying in bed resting with eyes closed. Respirations even and unlabored.
[2016-11-15 02:55] VITALS: BP 121/88
[2016-11-15] MEDS: ONDANSETRON ODT 4 MG TAB.RAPDIS SL PRN ×2 (03:01→09:17)
[2016-11-15] MEDS: CLONIDINE HCL 0.1 MG TABLET PO PRN (03:01)
--- NOTE | 2016-11-15 03:05 | NUR ---
PRN Clonidine and Zofran Pt woke up and reported feeling anxious and unable to relax. He also reports nausea has returned. B/P 121/88 and HR 95. CIWA 6. PRN Clonidine and Zofran administered.
--- NOTE | 2016-11-15 04:05 | NUR ---
PRN Clonidine and Zofran reassessment PRN Clonidine and Zofran effective. Pt is lying in bed resting with eyes closed. Respirations even and unlabored. Bed is down with call light in reach.
[2016-11-15 05:20] VITALS: BP 122/82
[2016-11-15] MEDS: HYDROXYZINE PAMOATE 25 MG CAPSULE PO PRN (05:24)
[2016-11-15] MEDS: MAG HYDROX/AL HYDROX/SIMETH 30 ML LIQUID UDC PO PRN (05:24)
--- NOTE | 2016-11-15 05:25 | NUR ---
PRN Vistaril and Mylanta administration Pt woke up and c/o feeling anxious and unable to relax. His face is flushed. B/P 122/82 and HR 94. CIWA 4. He also c/o acid indigestion. PRN Vistaril and Mylanta administered.
[2016-11-15] MEDS: PANTOPRAZOLE SODIUM 40 MG TABLET.DR PO SCH (07:30)
[2016-11-15] MEDS: PROMETHAZINE HCL 25 MG/1 ML VIAL IM PRN (07:40)
--- NOTE | 2016-11-15 07:40 | NUR ---
PRN Phenergan administration Pt reports nausea has returned. PRN Phenergan administered.
--- NOTE | 2016-11-15 07:40 | NUR ---
START OF SHIFT NOTE Received report from night nurse, 36 yo male admitted to [facility] on 11/08 for ETOH withdrawal. NKA, full code status, and on a regular diet. Pt reported PMH of anxiety. Pt reported drinking wine 2,560mL per day for 4 months and cocaine 1x/month for 2 years. Last used cocaine 6 months ago. Pt completed 5 days Ativan taper tolerated well. Pt received PRN Clonidine x2, PRN Vistaril x2, PRN Zofran x2, PRN Phenergan x2, PRN TUMS, PRN Mylanta, and PRN Benadryl effective per night nurse. Last CIWA was 4. Pt slept for 6 hours. Upon assessment pt is alert awake oriented x4 in stable condition. Breathing normal, little anxious about being discharge, Educate the pt with deep breathing. Safety measures in place, call light within reach.
--- NOTE | 2016-11-15 07:42 | NUR ---
END OF SHIFT Report provided to day shift nurse. Pt is lying in bed resting. He is a 36 yo male [address] to [facility] on 11/08 for ETOH withdrawal. He is A&O x4 and ambulatory. NKA, full code status, and on a regular diet. He has a PMH of anxiety. On admission he admitted to drinking wine 2,560mL per day for 4 months and cocaine 1x/month for 2 years. Last used cocaine 6 months ago. He completed a 5 day Ativan taper and is scheduled for discharge today. He had anxiety, nausea, and acid indigestion throughout the night. PRN Clonidine x2, PRN Vistaril x2, PRN Zofran x2, PRN Phenergan x2, PRN TUMS, PRN Mylanta, and PRN Benadryl administered. Last CIWA was 4. Fall and seizzure precautions in place. Bed is down with call light in reach.
[2016-11-15 08:00] VITALS: BP 138/91
[2016-11-15] MEDS: MULTIVITAMINS,THERAPEUTIC TABLET PO SCH (08:13)
[2016-11-15] MEDS: THIAMINE HCL 100 MG TABLET PO SCH (08:13)
[2016-11-15] MEDS: FOLIC ACID 1 MG TABLET PO SCH (08:13)
[2016-11-15 08:14] VITALS: BP 138/91
[2016-11-15] MEDS: CLONIDINE HCL 0.1 MG TABLET PO SCH (08:14)
[2016-11-15] MEDS: AMLODIPINE 5 MG TABLET PO SCH (08:14)
--- NOTE | 2016-11-15 08:40 | NUR ---
Reassessment Pt states that the medication was effective in relieving his nausea.
--- NOTE | 2016-11-15 09:17 | NUR ---
PRN ZOFRAN Pt c/o nausea, PRN Zofran SL administered as ordered. Will cont to monitor.
--- NOTE | 2016-11-15 09:37 | NUR ---
REASSESSMENT Upon reassessment nausea subside medication effective.
--- NOTE | 2016-11-15 09:50 | NUR ---
DISCHARGE NOTE Pt is in stable condition. Vitals WNL, Pt alert and oriented x4, skin intact, Pt denies any SI/HI. All discharge paperwork completed dated and signed. Pt educated about discharge instructions, what to do after discharge when to contact MD as well as the s/s reportable to MD, pt verbalized understanding. Pt was provided with all of his discharge paperwork. Pt's last CIWA-4 taken at 0800. Pt was discharged from [facility] on 11/15/16 at 0950. Pt left the building with all of his belongings, prescriptions pt did not bring any medications. MD and psychiatrist have been contacted notified and aware of pt's d/c. Pt discharged to [facility].
== END 2016-11-15 09:50 | disposition home or self-care (01) | DRG 895 ==
LOC: SRC 17:30
PROVIDERS: ADMIT Internal Medicine; ATTEND Internal Medicine
PROC: HZ2ZZZZ Detoxification Services for Substance Abuse Treatment (ICD-10-PCS; principal; 2016-11-08)
PROC: HZ31ZZZ Individual Counseling for Substance Abuse Treatment, Behavioral (ICD-10-PCS; 2016-11-09)
PROC: HZ41ZZZ Group Counseling for Substance Abuse Treatment, Behavioral (ICD-10-PCS; 2016-11-12)
DX: F10.230 Alcohol dependence with withdrawal, uncomplicated (principal); K70.10 Alcoholic hepatitis without ascites; K29.20 Alcoholic gastritis without bleeding; Y90.9 Presence of alcohol in blood, level not specified; Z81.1 Family history of alcohol abuse and dependence; F41.9 Anxiety disorder, unspecified; G47.00 Insomnia, unspecified; I10 Essential (primary) hypertension
CPT/HCPCS: 36415; 70030-TC; 80307; 83690; 83735; 84100; 84443; 85025; 86580; 86592; 86705; 86803; 87340; 87806; A4663; C9113; G6040-TC; J2405; J2550; J7030; Q0162; Q0163